=== PATIENT | male | born 1975 | race Caucasian/White ===

== ENCOUNTER 2021-07-07 08:55 | Outpatient (REF) | payer OTHER, SELFPAY ==
[2021-07-07 09:31] LABS: COVID-19 Test Positive (Negative)
== END 2021-07-07 08:56 | disposition home or self-care (01) ==
LOC: HO.LAB 08:55
PROVIDERS: Visit Provider Internal Medicine
DX: Z20.822 Contact with and (suspected) exposure to COVID-19 (principal)
CPT/HCPCS: 87635; C9803

== ENCOUNTER → 2024-05-18 08:41 | Outpatient (BNVA) | payer OTHER, SELFPAY | PROVIDERS: Visit Provider Internal Medicine | DX: S50.02XA Contusion of left elbow, initial encounter (principal); S39.012A Strain of muscle, fascia and tendon of lower back, initial encounter; W00.0XXA Fall on same level due to ice and snow, initial encounter; Z13.1 Encounter for screening for diabetes mellitus | CPT/HCPCS: 72110; 72220; 73080; 82947; 99204 ==

== ENCOUNTER → 2024-05-21 08:49 | Outpatient (BNVA) | payer OTHER, SELFPAY | PROVIDERS: Visit Provider Physician Assistant Medical | DX: S50.02XA Contusion of left elbow, initial encounter (principal); S39.012A Strain of muscle, fascia and tendon of lower back, initial encounter; W00.0XXA Fall on same level due to ice and snow, initial encounter; M54.17 Radiculopathy, lumbosacral region | CPT/HCPCS: 99213 ==

== ENCOUNTER → 2024-05-26 08:32 | Outpatient (BNVA) | payer OTHER, SELFPAY | PROVIDERS: Visit Provider Physician Assistant Medical | DX: S50.02XD Contusion of left elbow, subsequent encounter (principal); S39.012D Strain of muscle, fascia and tendon of lower back, subsequent encounter; W00.0XXD Fall on same level due to ice and snow, subsequent encounter | CPT/HCPCS: 99213 ==

== ENCOUNTER 2024-05-31 10:07 | Outpatient (REF) | payer OTHER, SELFPAY | END 2024-05-31 10:08 | disposition home or self-care (01) | LOC: HO.MRI 10:07 | PROVIDERS: Visit Provider Internal Medicine | DX: M54.17 Radiculopathy, lumbosacral region (principal) | CPT/HCPCS: 72148 ==

== ENCOUNTER → 2024-05-31 10:25 | Outpatient (BNV) | payer OTHER, SELFPAY | PROVIDERS: Visit Provider Radiology Diagnostic Radiology | DX: M54.17 Radiculopathy, lumbosacral region (principal); M51.34 Other intervertebral disc degeneration, thoracic region | CPT/HCPCS: 72148 ==

== ENCOUNTER → 2024-06-04 09:44 | Outpatient (BNVA) | payer OTHER, SELFPAY | PROVIDERS: Visit Provider Physician Assistant Medical | DX: S50.02XD Contusion of left elbow, subsequent encounter (principal); S39.012D Strain of muscle, fascia and tendon of lower back, subsequent encounter; S32.9XXD Fracture of unspecified parts of lumbosacral spine and pelvis, subsequent encounter for fracture with routine healing; W00.0XXD Fall on same level due to ice and snow, subsequent encounter; M54.17 Radiculopathy, lumbosacral region | CPT/HCPCS: 99213 ==

== ENCOUNTER 2024-06-10 09:40 | Outpatient (AMB) | payer OTHER, SELFPAY ==
--- NOTE | 2024-06-10 09:48 | A.OFFVIS_ITS ---
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 He sustained the fall on ice, landing on his buttocks, which initiated pain concentrated in the lower back, predominantly on the left side. The initial symptoms included pain radiating somewhat to his legs, perceived weakness, and increased urination frequency, though these have improved since ceasing certain physical activities and attending physical therapy. Currently, he chiefly describes the sensation as being uncomfortable with a bulging feeling on the lower left side. The discomfort is exacerbated by prolonged sitting or standing, and certain twisting motions make it worse, while mobility and heat application provide alleviation. He has a confirmed fracture, with an MRI revealing no loss of verticular height and the fracture is likely beginning to heal. Early management with muscle relaxants and steroids was initially prescribed, but with progressive improvement, regular use has become unnecessary. - Onset: One month ago following a fall on ice. - Quality and Character: Described as uncomfortable with tightness and a bulging feeling on the lower left side of the back. - Location: Lower back and left side; discomfort does not radiate below the gluteal region. - Exacerbating Factors: Prolonged standing or sitting, particularly upright sitting and twisting motions. - Relieving Factors: Movement, heat application, and avoiding prolonged stationary positions. - Functional Interference: Increased discomfort with prolonged activity and during certain physical movements. - Affect: Pain impacts daily comfort, causing a sensation of tightness and discomfort during certain activities. - Analgesia: Managed primarily with preliminary use of muscle relaxants and steroids; current medications are sparingly used due to improvement. - Adverse Effects: No reported adverse effects from medications taken. - Activities of Daily Living: Mobility impacts noted with certain twisting activities and prolonged stationary positions; improvement with daily activity adjustments. - Aberrant Drug-Related Behaviors: No indications of medication misuse reported. [facility], LATER [facility] Social History (Updated 06/10/24 @ 11:04 by Rabia Ramirez APRN, [facility]) Alcohol intake: current Comment: 1-2X weekly Substance Use Type: Marijuana Review of Systems Const Details: - Musculoskeletal: Reports tightness and discomfort in the lower back exacerbated by certain movements. Denies tenderness. - Neurological: Denies numbness, tingling, or leg weakness at present. - Genitourinary: Reports frequent urination initially but resolved. Physical Exam Vital Signs: Last Vital Signs Pulse 63 06/10/24 09:49 Resp 16 06/10/24 09:49 BP 152/90 H 06/10/24 09:49 Pulse Ox 98 06/10/24 09:49 Oxygen Delivery Method Room Air 06/10/24 09:49 BMI result Body Mass Index 32.5 General: awake, alert, oriented. Answers questions appropriately. Fully engaged in examination. Skin: warm, dry, intact HEENT: Normocephalic. Hearing intact. Cardiac: External chest normal in appearance. Respiratory: No cough, audible wheezing or stridor. Abdomen: without gross distension. MS: No obvious swelling or deformities. Able to stand on bilateral tiptoes and bilateral heels.? Able to transition from sit to stand unassisted. Ambulates with bilaterally normal heel strike and toe off SLR negative bilaterally Lumbar range of motion intact Facet loading positive bilaterally Nontender over bilateral PSIS Minimally tender over midline lumbar vertebrae and lumbar paraspinal muscles No significant tenderness over L5 vertebrae Valsalva negative Neurological: Oriented to person, place, time and situation. Thought process intact. No gait abnormalities appreciated. Psychiatric: Appropriate mood and affect. Good judgment and insight. Results Reviewed Results Reviewed: 06/02/24 MRI LS The vertebral bodies are in satisfactory alignment. No osseous marrow replacement process. There is mild edema in the superior endplate of L5. Conus medullaris and cauda equina within normal limits. T11-12: Small left paracentral disc protrusion effaces the thecal sac with no significant mass effect on the ventral aspect of the adjacent spinal cord. No significant stenosis T12-L1: Mild disc bulge. No significant spinal or foraminal stenosis. L1-2: No significant disc displacement or stenosis. L2-3: Mild disc bulge and facet arthropathy. No significant stenosis. L3-4: Mild disc bulge and facet arthropathy. No significant stenosis. L4-5: Moderate disc bulge and facet arthropathy. No significant spinal stenosis. Mild bilateral foraminal stenoses. L5-S1: Small right paracentral disc protrusion and facet arthropathy. No significant spinal stenosis. Mild bilateral foraminal stenoses. Visualized retroperitoneum unremarkable. Paraspinous muscles unremarkable. Impression: 1. Mild edema in the superior endplate of L5 suggests an acute fracture with minimal compression deformity. 2. Small right paracentral disc protrusion at L5-S1 does not appear to contact the adjacent nerve roots. No significant spinal stenosis. 3. Disc disease T11-12, T12-L1, L2-3, L3-4 and L4-5 with no significant spinal stenosis. 4. Mild bilateral foraminal stenoses at L4-5 and L5-S1. Assessment & Plan Assessment & Plan (1) Status post fall: Code(s): Z91.81 - History of falling Category: Medical (2) Lumbar spondylosis: Code(s): M47.816 - Spondylosis without myelopathy or radiculopathy, lumbar region Category: Medical (3) Traumatic compression fracture of L5 vertebra: Code(s): S32.050A - Wedge compression fracture of fifth lumbar vertebra, initial encounter for closed fracture Category: Medical (4) Back pain: Code(s): M54.9 - Dorsalgia, unspecified Category: Medical (5) Lumbar muscle pain: Code(s): M79.18 - Myalgia, other site Category: Medical Plan The patient will continue with home-based stretching exercises that do not cause pain, engage in regular movement with applying heat as needed, and use anti- inflammatory medications like ibuprofen or naproxen for discomfort. Muscle relaxants may be used at bedtime if deemed necessary. Follow-up with the invoicing specialist is scheduled for July. If symptoms worsen or new symptoms arise, the patient is advised to return for reevaluation sooner. I discussed the diagnostic results with the patient, emphasizing the lumbar fracture is stable without loss of vertebral height and is likely not the primary source of pain since exam palpation did not elicit significant tendern ess. The benefits of continuing gentle stretching and motion to further aid healing and the use of anti-inflammatory medications were outlined. We explored complications that could arise from resumed strenuous activity before full recovery, highlighting the fracture's natural healing trajectory. We agreed on a plan to continue with recommended exercises and ensuring symptom management according to the progress of his discomfort. - Continue gentle stretching exercises at home. - Use heat therapy for discomfort. - Take ibuprofen or naproxen as needed for inflammation relief. - Use muscle relaxants at night if experiencing discomfort. - Return for a check-up if symptoms worsen or change. Patient was informed and verbally consented to the use of an ambient scribe for clinic note documentation during this visit. Coding Level of Care Code New Pt Level 4 (27769) Complex EM visit Add On G2211 Diagnoses Status post fall Z91.81 Lumbar spondylosis M47.816 Traumatic compression fracture of L5 vertebra S32.050A Back pain M54.9 Lumbar muscle pain M79.18
[2024-06-10 09:49] VITALS: BP 152/90; PULSE 63; RESP 16; O2SAT 98; BMI 32.5
== END 2024-06-10 10:23 | disposition home or self-care (01) ==
LOC: HO.PMC 09:41
PROVIDERS: Visit Provider Registered Nurse Emergency
DX: M47.816 Spondylosis without myelopathy or radiculopathy, lumbar region (principal); S32.050A Wedge compression fracture of fifth lumbar vertebra, initial encounter for closed fracture; M54.9 Dorsalgia, unspecified; M79.18 Myalgia, other site; Z91.81 History of falling
CPT/HCPCS: 99204; G2211

== ENCOUNTER → 2024-06-10 09:40 | Outpatient (BNVA) | payer OTHER, SELFPAY | PROVIDERS: Visit Provider Registered Nurse Emergency | DX: S32.050A Wedge compression fracture of fifth lumbar vertebra, initial encounter for closed fracture (principal); M47.816 Spondylosis without myelopathy or radiculopathy, lumbar region; M54.9 Dorsalgia, unspecified; M79.18 Myalgia, other site; X58.XXXA Exposure to other specified factors, initial encounter; Y93.9 Activity, unspecified; Y92.9 Unspecified place or not applicable; Y99.9 Unspecified external cause status; Z91.81 History of falling | CPT/HCPCS: 99202 ==

== ENCOUNTER → 2024-06-19 13:56 | Outpatient (BNVA) | payer OTHER, SELFPAY | PROVIDERS: Visit Provider Physician Assistant Medical | DX: S32.058D Other fracture of fifth lumbar vertebra, subsequent encounter for fracture with routine healing (principal); S50.02XD Contusion of left elbow, subsequent encounter; W00.0XXD Fall on same level due to ice and snow, subsequent encounter; M54.17 Radiculopathy, lumbosacral region | CPT/HCPCS: 99213 ==

== ENCOUNTER → 2024-07-10 13:49 | Outpatient (BNVA) | payer OTHER, SELFPAY | PROVIDERS: Visit Provider Physician Assistant Medical | DX: S32.050D Wedge compression fracture of fifth lumbar vertebra, subsequent encounter for fracture with routine healing (principal); S50.02XD Contusion of left elbow, subsequent encounter; W00.0XXD Fall on same level due to ice and snow, subsequent encounter; M54.17 Radiculopathy, lumbosacral region | CPT/HCPCS: 99213 ==